=== PATIENT | male | born 1980 | race Two or more races ===

== ENCOUNTER 2025-03-27 17:39 | Emergency (ER) | payer BC ==
[~2025-03-27] VITALS: Ht 188 cm; Wt 97.4 kg
[2025-03-27 17:41] VITALS: BP 150/104; PULSE 79; O2SAT 95
--- NOTE | 2025-03-27 19:03 | Physician Documentation ---
History of Present Illness ~ Chief Complaint: Leg Pain Stated Complaint: LEG PAIN Time Seen by MD: 18:49 HPI Patient is a 45-year-old gentleman that presents to the emergency department for evaluation of left calf pain after running after his dog. Patient denies any traumatic injury just reports that he felt a pop in his calf and now has pain with walking. Reports he has a primary care provider they are currently camping and can not follow up with them until Saturday. Medication Reconciliation Allergies: Coded Allergies: aspirin (Verified Allergy, Unknown, 03/27/25) SENSITIVE Review of Systems ROS As stated above in the HPI, otherwise all systems are reviewed and negative. Physical Exam Vital Signs: Temperature: 98.2, Source: Temporal, Heart Rate: 79, Respiratory Rate: 16, BP: 150/104, Pulse Oximetry: 95, Weight: 97.400 Physical Exam VITALS: Reviewed and as above. GENERAL: Alert, no apparent distress. HEENT: Normocephalic, atraumatic, PERRL, EOMI, dry mucosa, no erythema RESPIRATORY: Lungs clear, normal breath sounds, no respiratory distress. CHEST: No accessory muscle use, no retractions CV: Regular rate, rhythm, no edema, no murmur, No: JVD GI: Soft, non-tender, bowels sounds present, no rebound, guarding, or rigidity BACK: No CVA tenderness, or swelling MUSCULOSKELETAL No deformities, no edema, pain to the left lower extremity area of the gastrocnemius with examination palpation and range of motion. SKIN: Warm and dry, no rash NEURO: Oriented x4, No motor or sensory deficit PSYCH: Normal mood and affect, no agitation Progress Results/Orders Results/Orders Vital Signs 03/27/25 17:41 Temp 98.2 Pulse 79 Resp 16 B/P (MAP) 150/104 Pulse Ox 95 Medical Decision Making Findings Patient presents with lower left lower extremity muscular pain. Given history, exam and workup patient likely has return of his gastrocnemius. I have low suspicion for fracture, dislocation, significant ligamentous injury, septic arthritis, gout flare, new autoimmune arthropathy, or gonococcal arthropathy.The Pt is otherwise well appearing without concurrent Fx, overt ligamentous tear, neurovascular injury, or compartment syndrome. Patient's pain was controlled with Tylenol and a dose of IM Toradol. Patient was provided with crutches. Patient will follow up with his primary care provider. Patient will return to the emergency department with any worsening of his current symptoms or any additional concerning symptoms that we discussed here today i.e. increased swelling redness fevers increased pain with ambulation or any concerning symptoms. General Diff Dx:Considerations: Include: Abrasion, Contusion, Fracture, Hematoma, Laceration, Malunion, Neurovascular injury, Open fracture, Sprain, Ulcer, Other Knee Diff Dx:Considerations: Include: Abrasion, Arthritis, Contusion, DJD, Fracture-femur, Fracture-fibula, Fracture-patella, Fracture-tibia, Gout, Hematoma, Laceration, Meniscus injury, Neurovascular injury, Open fracture, Rheumatoid arthritis, Septic, Sprain, Sprain-MCL, Sprain-LCL, Sprain-ACL, Sprain-PCL, Other Ankle Diff Dx:Considerations: Include: Abrasion, Arthritis, Contusion, DJD, Fracture-metatarsal, Fracture-fibula, Fracture-tarsal, Fracture-tibia, Gout, Hematoma, Laceration, Malunion, Neurovascular injury, Nonunion, Open fracture, Osteomyelitis, Rheumatoid arthritis, Sprain, Septic, Ulcer, Other Foot Diff Dx:Considerations: Include: Abrasion, Arthritis, Cellulitis, Contusion, Dislocation, DJD, Fracture-metatarsal, Fracture-phalynx, Fracture-t arsal, Gout, Hematoma, Ingrown toenail, Laceration, Malunion, Neurovascular injury, Open fracture, Paronychia, Puncture, Rheumatoid, Sprain, Septic, Subungual hematoma, Ulcer, Other Toe Diff Dx:Considerations: Include: Abrasion, Cellulitis, Contusion, Dislocation, Felon, Fracture, Hematoma, Laceration, Neurovascular injury, Open fracture, Paronychia, Subungual hematoma, Other Departure Disposition: 01 HOME / SELF CARE / HOMELESS Impression: Primary Impression: Lower extremity sprain Additional Impressions: Gastrocnemius strain Pain Discharge Instructions: RICE Therapy for Routine Care of Injuries, Easy-to-Re ad, Muscle Strain, [id number] Additional Instructions: Patient presents with lower left lower extremity muscular pain. Given history, exam and workup patient likely has return of his gastrocnemius. I have low suspicion for fracture, dislocation, significant ligamentous injury, septic arthritis, gout flare, new autoimmune arthropathy, or gonococcal arthropathy.The Pt is otherwise well appearing without concurrent Fx, overt ligamentous tear, neurovascular injury, or compartment syndrome. Patient's pain was controlled with Tylenol and a dose of IM Toradol. Patient was provided with crutches. Patient will follow up with his primary care provider. Patient will return to the emergency department with any worsening of his current symptoms or any additional concerning symptoms that we discussed here today i.e. increased swelling redness fevers increased pain with ambulation or any concerning symptoms. Ibuprofen as needed for discomfort. Rest ice elevation as tolerated. Referrals: NO PRIMARY CARE PROVIDER (PCP) Education Educated: Patient Educated regarding: diagnosis, treatment, need for follow up Signature Scribe Signature: A Attestation: Scribed for Belen Piedra by MAXIMINO Knott . 03/27/25 19:15 BELEN PIEDRA Mar 27, 2025 19:03
[2025-03-27] MEDS ORDERED: ketorolac trometh 15mg/ml vial 15 MG/ML ML IM ONE (19:05)
[2025-03-27 19:38] VITALS: RESP 16
[2025-03-27] MEDS: ketorolac trometh 30MG/ML vial 30 MG/ML VIAL IM ONE (19:38)
[2025-03-27 19:52] VITALS: TEMP 98.2
[2025-03-27] MEDS ORDERED: iohexol 300mg/ml 100ml inj. ONE (20:02)
== END 2025-03-27 19:53 | disposition home or self-care (01) ==
LOC: ER 17:40
DX: S93.692A Other sprain of left foot, initial encounter (principal); Z88.6 Allergy status to analgesic agent; X58.XXXA Exposure to other specified factors, initial encounter; Y93.02 Activity, running; Y92.89 Other specified places as the place of occurrence of the external cause; Y99.8 Other external cause status
CPT/HCPCS: 96372; 99283; J1885; Q9967